=== PATIENT | female | born 1975 | race African-American/Black ===

== ENCOUNTER 2018-02-28 23:54 | Emergency (ER) | payer SELFPAY ==
[~2018-02-28] VITALS: Ht 162.6 cm; Wt 147.0 kg
[2018-03-01 02:22] LABS: BASOPHILS % 0.5 % (0.0-2.0); EOSINOPHILS % 2.3 % (0.0-5.0); HEMATOCRIT. 38.6 % (36.0-48.0); HEMOGLOBIN. 12.3 g/dL (12.0-16.0); LYMPHOCYTES % 29.7 % (20.0-50.0); MEAN CORPUSCULAR HEMOGLOBIN 22.7 pg (28.0-32.0); MEAN CORPUSCULAR VOLUME 71.6 fL (81.0-99.0); MEAN PLATELET VOLUME 9.8 fl (7.4-10.4); MONOCYTES % 7.6 % (2.0-8.0); NEUTROPHILS % 59.9 % (40.0-76.0); PLATELET 216 x1000/uL (130-400); RED BLOOD CELL COUNT 5.39 mill/uL (4.2-5.4); RED CELL DISTRIBUTION WIDTH 16.2 % (11.6-14.6)
[2018-03-01 02:29] LABS: CHLORIDE 107 mEq/L (98-107)
[2018-03-01] MEDS ORDERED: IOHEXOL-350 100 ML BOTTLE ONE (05:20)
[2018-03-01 05:40] VITALS: BP 138/88
== END 2018-03-01 05:41 | disposition home or self-care (01) ==
LOC: ER 23:54
DX: M94.0 Chondrocostal junction syndrome [Tietze] (principal); F41.9 Anxiety disorder, unspecified; F17.200 Nicotine dependence, unspecified, uncomplicated; Z86.73 Personal history of transient ischemic attack (TIA), and cerebral infarction without residual deficits; Z98.890 Other specified postprocedural states
CPT/HCPCS: 36415; 71045; 71275; 80053; 81025; 84484; 85025; 85379; 93005; 93970; 99284; 99406; Q9967